=== PATIENT | male | born 1990 | race Caucasian/White ===

== ENCOUNTER 2017-03-15 12:00 | Emergency (ER) | payer MEDICAID ==
[~2017-03-15] VITALS: Ht 177.8 cm; Wt 95.3 kg
[~2017-03-15 12:00] MED LIST: COUGH DROPS1 EAC1 PO; IBUPROFEN800 MG PO
[2017-05-31] MEDS ORDERED: PROAIR HFA8.5 GM INH (08:12)
== END 2017-03-15 13:10 | disposition short-term general hospital (02) ==
LOC: ER 12:00
DX: J02.0 Streptococcal pharyngitis (principal); R11.2 Nausea with vomiting, unspecified